=== PATIENT | male | born 1935 | race Caucasian/White ===

== ENCOUNTER 2025-01-23 11:07 | Emergency (ER) | payer OTHER ==
[~2025-01-23] VITALS: Ht 177.8 cm; Wt 65.8 kg
[2025-01-23 11:09] VITALS: TEMP 98.1
[2025-01-23 11:36] LABS: PLATELET COUNT (AUTO) 221 K/uL (150-450); RED BLOOD CELL COUNT(AUTO) 4.81 MIL/uL (4.5-6.0); RED CELL DISTRIBUTION WIDTH 15.6 % (11.5-15.0); WHITE BLOOD COUNT (AUTO) 7.9 K/uL (4.3-11.0)
[2025-01-23 11:46] LABS: CALCIUM, SERUM 9.1 mg/dL (8.5-10.1); CREATININE 0.8 mg/dL (0.6-1.3); SODIUM SERUM 130 mmol/L (136-145); UREA NITROGEN, BLOOD 16 mg/dL (7-18)
[2025-01-23 11:50] LABS: INR 1.08 (0.91-1.10)
[2025-01-23 11:52] LABS: LACTIC ACID 1.1 mmol/L (0.4-2.0)
[2025-01-23 11:53] LABS: ASPARTATE AMINOTRANSFERASE 66 U/L (15-37); TOTAL PROTEIN, SERUM 7.5 g/dL (6.4-8.2)
[2025-01-23] MEDS ORDERED: ATOR10TA PO (12:05)
[2025-01-23] MEDS ORDERED: TAMS-12 PO (12:05)
[2025-01-23] MEDS ORDERED: CALC500T53 PO (12:05)
[2025-01-23] MEDS ORDERED: CHOL200074 PO (12:05)
[2025-01-23] MEDS ORDERED: ASPI-1169 PO (12:05)
[2025-01-23] MEDS ORDERED: AMOX500C2 PO (12:05)
[2025-01-23] MEDS ORDERED: DONE10TA44 PO (12:05)
[2025-01-23] MEDS ORDERED: ASPIRIN 81 MG TAB.CHEW ONE ×2 (13:31→13:34)
[2025-01-23] MEDS: ASPIRIN 81 MG TAB.CHEW PO ONE (13:37)
[2025-01-23 13:56] LABS: APPEARANCE,URINE CLEAR (CLEAR); BLOOD, URINE NEGATIVE Ery/uL (NEGATIVE); LEUKOCYTE ESTERASE ,URINE NEGATIVE (NEGATIVE); NITRITE, URINE NEGATIVE (NEGATIVE); UGLUCOSE NEGATIVE (NEGATIVE)
[2025-01-23 14:22] LABS: ADD URINE CULTURE NO; SQUAMOUS EPITHELIAL CELL,UR 0-2 /HPF (None Seen)
[2025-01-23] MEDS ORDERED: FUROSEMIDE 20 MG/2 ML VIAL ONE (15:04)
[2025-01-23] MEDS: FUROSEMIDE 20 MG/2 ML VIAL IV ONE (15:08)
[2025-01-23 17:30] VITALS: BP 155/46; O2SAT 94
== END 2025-01-23 17:35 ==
LOC: ER 11:16
DX: R53.1 Weakness (principal); I50.9 Heart failure, unspecified; R11.0 Nausea; R41.82 Altered mental status, unspecified; R53.81 Other malaise; R94.31 Abnormal electrocardiogram [ECG] [EKG]; Z95.2 Presence of prosthetic heart valve; Z20.822 Contact with and (suspected) exposure to COVID-19
CPT/HCPCS: 99285; 96374; 70450; 71045; 87426; 93005; 85025; 80048; 87040 ×2; 83605; 80076; 81001; 36415; 84443; 84484 ×2; 85730; 83880; J1938; A6403